=== PATIENT | female | born 1980 | race Hispanic/Latino ===

== ENCOUNTER 2020-06-23 11:21 | Emergency (ER) | payer OTHER, MEDICAID, SELFPAY ==
[2020-06-23 11:34] VITALS: BP 96/58; PULSE 72; RESP 14; TEMP 36.6; O2SAT 100; BMI 19.8
[2020-06-23 12:12] LABS: Add Manual Diff / Slide Review NO; Basophils Absolute Auto 100 /uL (0-100); Basophils Percent Auto 0.8 % (0-2); Eosinophils Absolute Auto 300 /uL (0-450); Eosinophils Percent Auto 3.7 % (2-4); Hematocrit 38.5 % (36-46); Hemoglobin 12.9 g/dL (12.0-16.0); Lymphocytes Absolute Auto 1900 /uL (1100-4500); Mean Corpuscular HGB Conc 33.4 % (30-36); Mean Corpuscular Hemoglobin 28.5 PG (26-34); Mean Corpuscular Volume 85.4 fL (80-100); Monocytes Absolute Auto 300 /uL (0-900); Monocytes Percent Auto 4.6 % (3-14); Neutrophils Absolute Auto 4500 /uL (1500-7000); Neutrophils Percent Auto 63.9 % (50-75); Platelet Count 218 X10^3/uL (150-400); Red Blood Cell Count 4.51 X10^6/uL (4.0-5.2); Red Cell Distribution Width 13.3 % (11.6-14.8); White Blood Cell Count 7.1 X10^3/uL (4.5-11.0)
--- NOTE | 2020-06-23 14:18 | DI.US.S_ITS ---
PROCEDURE: US OB <= 14 WEEKS FETUS INDICATIONS: 7 weeks preg, bleeding OUTSIDE/PRIOR DATING DATA: Last menstrual period (LMP): May 02, 2020. LMP-based estimated date of delivery (IVORY): February 06, 2021 . First dating scan (date and location): June 23, 2020 . Estimated date of delivery (IVORY) from first dating scan: February 09, 2021 . TECHNIQUE: Real-time scanning was performed of the fetus and maternal pelvic organs, with image documentation. Endovaginal scanning was also performed to better visualize the fetus and maternal ovaries. COMPARISON: None. FINDINGS: Embryo: There is a single living intrauterine gestation with an estimated sonographic gestational age of approximately 7 weeks and 0 days based off crown-rump length measurement of 1.0 cm. cardiac activity measured 131 beats per minute. Normal yolk sac is seen. No perigestational hemorrhage. Measurement variability in dating: +/- 4 weeks by LMP, +/- 7 days by mean sac diameter (use before 6 weeks gestation if crown-rump length not able to be measured), +/- 5 days by crown-rump length (up to 8 weeks 6 days gestation), +/- 7 days by crown-rump length (up to 13 weeks 6 days gestation). Maternal organs: Ovaries appear normal bilaterally. Maternal cervix appears visibly normal. Limited images through the kidneys demonstrate no hydronephrosis. IMPRESSION: Single living intrauterine gestation with an estimated sonographic gestational age of approximately 7 weeks and 0 days versus approximately 7 weeks and 3 days by last menstrual period. Dating is concordant. Estimated date of delivery is February 09, 2021. Clinical and imaging follow-up recommended. Dictated by: Chaparro Pelletier M.D. on 06/23/2020 at 14:25 Approved by: Chaparro Pelletier M.D. on 06/23/2020 at 14:29
[2020-06-23 14:26] LABS: Alanine Aminotransferase 35 IU/L (<35); Albumin 4.7 g/dL (3.5-5.0); Albumin Globulin Ratio 1.5 (1.0-2.8); Alkaline Phosphatase 67 U/L (38-126); Aspartate Aminotransferase 33 IU/L (14-36); Bilirubin Total 0.5 mg/dL (0.2-1.3); Blood Urea Nitrogen 18 mg/dL (7-17); Calcium 9.5 mg/dL (8.4-10.2); Carbon Dioxide 27 mmol/L (22-32); Chloride 103 mmol/L (98-107); Estimated Glomerular Filt Rate > 60.0 mL/min (>60); Globulin 3.2 g/dL (1.7-4.1); Glucose 92 mg/dL (70-100); HEMOLYSIS < 15 (0-50); Potassium 4.3 mmol/L (3.4-5.1); Sodium 137 mmol/L (137-145); Total Protein 7.9 g/dL (6.3-8.2)
[2020-06-23 14:42] LABS: HCG Quantitative /Beta subunit 1912.4 mIU/mL
[2020-06-23 15:53] VITALS: BP 102/49; PULSE 75; RESP 16; TEMP 37.1; O2SAT 98
--- NOTE | 2020-06-23 16:10 | ED_ITS ---
HPI - <DEJAN Morrow - Last Filed: 06/23/20 17:34> General Chief complaint: Vaginal Bleeding Stated complaint: 7 weeks preg,some bleeding Time Seen by Provider: 06/23/20 12:49 Source: patient Mode of arrival: Ambulatory Limitations: no limitations History of Present Illness HPI Narrative: The patient is a 40-year-old female nonsmoker who presents with a chief complaint of being 7 weeks with some vaginal bleeding. She states it started on Saturday, and since then has come and gone. She has not established care with an OBGYN locally and does not have a local primary care provider. She denies any new dysuria urgency or frequency. Denies any new or abnormal vaginal discharge. Denies any flank or back pain. States she feels as though she had some slight cramping. Related Data Allergies Allergy/AdvReac Type Severity Reaction Status Date / Time No Known Drug Allergies Allergy Verified 06/23/20 11:34 Review of Systems <DEJAN Morrow - Last Filed: 06/23/20 17:34> Review of Systems Narrative: GENERAL: Denies chills, fatigue, malaise, fever, sweats. HEENT: Denies sinus pain, ear pain, sore throat, difficulty swallowing, dizziness. RESPIRATORY: Denies dyspnea, cough, wheezing, hemoptysis, sputum. CARDIOVASCULAR: Denies chest pain, palpitations, orthopnea, edema, GASTROINTESTINAL: See HPI : See HPI MUSCULOSKELETAL: denies weakness, joint pain, or bony pain SKIN: Denies rash, skin lesions, or other NEUROLOGIC: Denies weakness, headache, numbness, change in speech, confusion, seizures, incoordination. PSYCHIATRIC: No concerning psychosocial issues. 12 point review of systems is negative except for those stated above Exam <DEJAN Morrow - Last Filed: 06/23/20 17:34> Narrative Exam Narrative: GENERAL: This is a well-nourished, well-developed patient, in no no acute distress HEAD: Atraumatic. Normocephalic. No temporal or scalp tenderness. EYES: Pupils equal round and reactive. Extraocular motions intact. No scleral icterus. No injection or drainage. ENT: Nose without bleeding, purulent drainage or septal hematoma. Throat without erythema, tonsillar hypertrophy or exudate. Uvula midline. Airway patent. NECK: Trachea midline. No JVD or lymphadenopathy. Supple, nontender, no meningeal signs. CARDIOVASCULAR: Regular rate and rhythm RESPIRATORY: Clear to auscultation. Breath sounds equal bilaterally. No wheezes, rales, or rhonchi. No cough. No increased respiratory effort. No accessory muscle use. GASTROINTESTINAL: Abdomen soft, non-tender, nondistended. No hepato- splenomegaly, or palpable masses. No guarding. Active bowel sounds all 4 quadrants. EXTREMITIES: No clubbing, cyanosis, or edema. No joint tenderness, effusion, or edema noted. BACK: Nontender without deformity or crepitance. No flank tenderness. NEURO: AOx3. SKIN: No rash or erythema on visible skin Initial Vital Signs Initial Vital Signs: Vital Signs Temperature 97.8 F 06/23/20 11:34 Pulse Rate 72 06/23/20 11:34 Respiratory Rate 14 06/23/20 11:34 Blood Pressure 96/58 L 06/23/20 11:34 Pulse Oximetry 100 06/23/20 11:34 <Ace Pineda MD - Last Filed: 06/26/20 18:56> Initial Vital Signs Initial Vital Signs: Vital Signs Temperature 97.8 F 06/23/20 11:34 Pulse Rate 72 06/23/20 11:34 Respiratory Rate 14 06/23/20 11:34 Blood Pressure 96/58 L 06/23/20 11:34 Pulse Oximetry 100 06/23/20 11:34 Scores <TAHIRA Morrow - Last Filed: 06/23/20 17:34> GCS Tomer coma scale eye opening: Spontaneous Tomer coma scale verbal response: Orientated Grannis coma scale motor response: Obey commands Grannis coma scale total score: 15 Course <TAHIRA Morrow - Last Filed: 06/23/20 17:34> Orders Ordered: ED Orders 06/23/20 11:57 ABO RH Type Stat Complete Blood Count AUTO DIFF Stat Comprehensive Metabolic Panel Stat HCG Quantitative /Beta subunit Stat 06/23/20 14:18 US OB <= 14 weeks fetus Stat Vital Signs Vital signs: Vital Signs - 8 hr 06/23/20 11:34 06/23/20 15:53 Temperature 97.8 F 98.8 F Pulse Rate 72 75 Respiratory Rate 14 16 Blood Pressure 96/58 L 102/49 L Pulse Oximetry 100 98 <Ace Pineda MD - Last Filed: 06/26/20 18:56> Orders Ordered: ED Orders 06/23/20 11:57 ABO RH Type Stat Complete Blood Count AUTO DIFF Stat Comprehensive Metabolic Panel Stat HCG Quantitative /Beta subunit Stat 06/23/20 14:18 US OB <= 14 weeks fetus Stat Vital Signs Vital signs: Vital Signs - 8 hr 06/23/20 11:34 06/23/20 15:53 Temperature 97.8 F 98.8 F Pulse Rate 72 75 Respiratory Rate 14 16 Blood Pressure 96/58 L 102/49 L Pulse Oximetry 100 98 MDM - OB/Uterine Contractions <TAHIRA Morrow - Last Filed: 06/23/20 17:34> Lab Data Attestation: I reviewed the patient's lab results. Result diagrams: 06/23/20 11:57 06/23/20 11:57 Labs: Lab Results 06/23/20 06/23/20 06/23/20 Range/Units 11:57 11:57 11:57 WBC 7.1 (4.5-11.0) X10^3/uL RBC 4.51 (4.0-5.2) X10^6/uL Hgb 12.9 (12.0-16.0) g/dL Hct 38.5 (36-46) % MCV 85.4 (80-100) fL MCH 28.5 (26-34) PG MCHC 33.4 (30-36) % RDW 13.3 (11.6-14.8) % Plt Count 218 (150-400) X10^3/uL Neut % (Auto) 63.9 (50-75) % Lymph % (Auto) 27.0 (25-40) % [place] % (Auto) 4.6 (3-14) % Eos % (Auto) 3.7 (2-4) % Baso % (Auto) 0.8 (0-2) % Neut # (Auto) 4500 (5886-5301) /uL Lymph # (Auto) 1900 (9458-8724) /uL [place] # (Auto) 300 (0-900) /uL Eos # (Auto) 300 (0-450) /uL Baso # (Auto) 100 (0-100) /uL Sodium 137 (137-145) mmol/L Potassium 4.3 (3.4-5.1) mmol/L Chloride 103 (98-107) mmol/L Carbon Dioxide 27 (22-32) mmol/L BUN 18 H (7-17) mg/dL Creatinine 0.58 (0.52-1.04) mg/dL Estimated GFR > 60.0 (>60) mL/min BUN/Creatinine Ratio 31.0 H (6-22) Glucose 92 (70-100) mg/dL Calcium 9.5 (8.4-10.2) mg/dL Total Bilirubin 0.5 (0.2-1.3) mg/dL AST 33 (14-36) IU/L ALT 35 H (<35) IU/L Alkaline Phosphatase 67 (38-126) U/L Total Protein 7.9 (6.3-8.2) g/dL Albumin 4.7 (3.5-5.0) g/dL Globulin 3.2 (1.7-4.1) g/dL Albumin/Globulin Ratio 1.5 (1.0-2.8) HCG, Quant 1912.4 mIU/mL Blood Type B Positive Point of Care Testing Test Results Positive Urine Dip Bedside Urine Glucose Negative Bedside Urine Bilirubin + 1 Bedside Urine Ketone - Negative Urine Specific [place] 1.015 Bedside Urine Occult Blood - Negative Bedside Urine pH 8.0 Bedside Urine Protein +/- 15 Bedside Urine Urobilinogen - Negative Bedside Urine Nitrite - Negative Bedside Urine Leukocytes - Negative Esterase Imaging Data US - OB: Radiologist's Impression: [address] [place] [id number] Ultrasound Report Signed Patient: Carolyn Lee PMR#: [id number] : 1980Acct:[id number] Age/Sex: 40 / FDate of Service: 06/23/20 Loc: ED Accession Number: [id number] Procedure: US OB <= 14 weeks fetus Ordering Provider: Kira Palma PROCEDURE: US OB <= 14 WEEKS FETUS INDICATIONS: 7 weeks preg, bleeding OUTSIDE/PRIOR DATING DATA: Last menstrual period (LMP): May 02, 2020. LMP-based estimated date of delivery (IVORY): February 06, 2021 . First dating scan (date and location): June 23, 2020 . Estimated date of delivery (IVORY) from first dating scan: February 09, 2021 . TECHNIQUE: Real-time scanning was performed of the fetus and maternal pelvic organs, with image documentation. Endovaginal scanning was also performed to better visualize the fetus and maternal ovaries. COMPARISON: None. FINDINGS: Embryo: There is a single living intrauterine gestation with an estimated s onographic gestational age of approximately 7 weeks and 0 days based off crown-rump length measurement of 1.0 cm. cardiac activity measured 131 beats per minute. Normal yolk sac is seen. No perigestational hemorrhage. Measurement variability in dating: +/- 4 weeks by LMP, +/- 7 days by mean sac diameter (use before 6 weeks gestation if crown-rump length not able to be measured), +/- 5 days by crown-rump length (up to 8 weeks 6 days gestation), +/- 7 days by crown-rump length (up to 13 weeks 6 days gestation). Maternal organs: Ovaries appear normal bilaterally. Maternal cervix appears visibly normal. Limited images through the kidneys demonstrate no hydronephrosis. IMPRESSION: Single living intrauterine gestation with an estimated sonographic gestational age of approximately 7 weeks and 0 days versus approximately 7 weeks and 3 days by last menstrual period. Dating is concordant. Estimated date of delivery is February 09, 2021. Clinical and imaging follow-up recommended. Dictated by: Chaparro Pelletier M.D. on 06/23/2020 at 14:25 Approved by: Chaparro Pelletier M.D. on 06/23/2020 at 14:29 MDM Narrative Medical decision making narrative: The patient is a 40-year-old female presents with a chief complaint of vaginal bleeding during her 7 week . Does not appear acutely ill, has normal vital signs. Lab work grossly within normal limits, though beta hCG noted to be slightly low if for 7 week . Ultrasound is no acute findings. Urine has no signs of infection. Given that the patient does not have a local primary care provider or OBGYN, I spoke with Dr. wilson who is willing to follow up with the patient the next few days. Discussed at length the importance of follow-up with Dr. wilson, the possibility of an early miscarriage and that it is impossible to determine at this point what would happen. I discussed at length return precautions the ER including acute concerns, severe abdominal pain, severe abdominal bleeding etcetera. Patient has no questions or concerns upon discharge and states understanding return precautions as well as follow-up care. <Ace Pineda MD - Last Filed: 06/26/20 18:56> Lab Data Labs: Lab Results 06/23/20 06/23/20 06/23/20 Range/Units 11:57 11:57 11:57 WBC 7.1 (4.5-11.0) X10^3/uL RBC 4.51 (4.0-5.2) X10^6/uL Hgb 12.9 (12.0-16.0) g/dL Hct 38.5 (36-46) % MCV 85.4 (80-100) fL MCH 28.5 (26-34) PG MCHC 33.4 (30-36) % RDW 13.3 (11.6-14.8) % Plt Count 218 (150-400) X10^3/uL Neut % (Auto) 63.9 (50-75) % Lymph % (Auto) 27.0 (25-40) % [place] % (Auto) 4.6 (3-14) % Eos % (Auto) 3.7 (2-4) % Baso % (Auto) 0.8 (0-2) % Neut # (Auto) 4500 (9734-8688) /uL Lymph # (Auto) 1900 (7056-6032) /uL [place] # (Auto) 300 (0-900) /uL Eos # (Auto) 300 (0-450) /uL Baso # (Auto) 100 (0-100) /uL Sodium 137 (137-145) mmol/L Potassium 4.3 (3.4-5.1) mmol/L Chloride 103 (98-107) mmol/L Carbon Dioxide 27 (22-32) mmol/L BUN 18 H (7-17) mg/dL Creatinine 0.58 (0.52-1.04) mg/dL Estimated GFR > 60.0 (>60) mL/min BUN/Creatinine Ratio 31.0 H (6-22) Glucose 92 (70-100) mg/dL Calcium 9.5 (8.4-10.2) mg/dL Total Bilirubin 0.5 (0.2-1.3) mg/dL AST 33 (14-36) IU/L ALT 35 H (<35) IU/L Alkaline Phosphatase 67 (38-126) U/L Total Protein 7.9 (6.3-8.2) g/dL Albumin 4.7 (3.5-5.0) g/dL Globulin 3.2 (1.7-4.1) g/dL Albumin/Globulin Ratio 1.5 (1.0-2.8) HCG, Quant 1912.4 mIU/mL Blood Type B Positive Point of Care Testing Test Results Positive Urine Dip Bedside Urine Glucose Negative Bedside Urine Bilirubin + 1 Bedside Urine Ketone - Negative Urine Specific [place] 1.015 Bedside Urine Occult Blood - Negative Bedside Urine pH 8.0 Bedside Urine Protein +/- 15 Bedside Urine Urobilinogen - Negative Bedside Urine Nitrite - Negative Bedside Urine Leukocytes - Negative Esterase Discharge Plan Departure Patient Disposition: Home Clinical Impression: Vaginal bleeding during , Miscarriage, threatened, early Discharge Date/Time: 06/23/20 17:00 Instructions: Threatened Miscarriage, DI for Vaginal Bleeding During Activity Restrictions/Additional Instructions: Thank you for trusting us with your care today. As discussed, your ultrasound looks good at this point. Please follow-up with Dr. wilson, our OBGYN. I spoke with her regarding you, in her office she will be reaching out to you to help schedule follow-up for next week. As discussed it is impossible to tell whether or not this is a sign of an early miscarriage. Please monitor for increased vaginal bleeding pain. Please come back to the emergency department for any acute concerns. I have also given you contact information to the [facility] manager human resources, who can help you local primary care providers who accept her insurance. Please rest and push fluids Please come back to the emergency department for any acute concerns. Referrals: [facility] [Outside] Sarah Wilson MD [Physician] - Narciso Marte [Primary Care Provider] - <Ace Pineda MD - Last Filed: 06/26/20 18:56> Cosign ED Attending Cosignature Attestation: I was immediately available in the department for consultation. This documentation has been reviewed and I agree with assessment and plan. Supervised by Ace Pineda MD
== END 2020-06-23 17:00 | disposition home or self-care (01) ==
PROVIDERS: Emergency Medicine; Emergency Provider Nurse Practitioner Family; PCP Family Medicine
DX: O20.0 Threatened abortion (principal); Z3A.01 Less than 8 weeks gestation of pregnancy
CPT/HCPCS: 36415; 76801; 76817; 80053; 81003; 81025; 84702; 85025; 86900; 86901; 99283; 99284

== ENCOUNTER → 2020-10-27 08:20 | Outpatient (CLI) | payer OTHER, MEDICAID, SELFPAY ==
--- NOTE | 2020-10-27 | DI.US.S_ITS ---
PROCEDURE: US OB <= 14 WEEKS FETUS INDICATIONS: SIZE AND DATES OUTSIDE/PRIOR DATING DATA: Last menstrual period (LMP): September 16, 2020. LMP-based estimated date of delivery (IVORY): June 23, 2021. First dating scan (date and location): October 27, 2020. Estimated date of delivery (IVORY) from first dating scan: June 30, 2021. TECHNIQUE: Real-time scanning was performed of the fetus and maternal pelvic organs, with image documentation. Endovaginal scanning was also performed to better visualize the fetus and maternal ovaries. COMPARISON: [facility], , OB <= 14 WEEKS FETUS, 06/23/2020, 14:51. FINDINGS: Embryo: There is a single intrauterine gestation. A yolk sac is visualized. No pole or visible cardiac activity. This measures approximately 6 weeks and 2 days based off mean gestational sac diameter. No perigestational hemorrhage seen. Measurement variability in dating: +/- 4 weeks by LMP, +/- 7 days by mean sac diameter (use before 6 weeks gestation if crown-rump length not able to be measured), +/- 5 days by crown-rump length (up to 8 weeks 6 days gestation), +/- 7 days by crown-rump length (up to 13 weeks 6 days gestation). Maternal organs: Ovaries appear unremarkable without evidence for ovarian or adnexal mass lesions. No pelvic free fluid . IMPRESSION: 1. Single intrauterine gestation with estimated sonographic gestational age of approximately 6 weeks and 2 days based off mean gestational sac diameter versus approximately 5 weeks and 6 days based off last menstrual period. A yolk sac is visualized but no pole or cardiac activity. Recommend continued clinical surveillance with serial quantitative HCG measurements to document expected rate of rise as well as follow-up ultrasound as indicated. 2. Normal sonographic appearance of the bilateral ovaries/adnexa. Dictated by: Chaparro Pelletier M.D. on 10/27/2020 at 12:12 Approved by: Chaparro Pelletier M.D. on 10/27/2020 at 12:18
== END ==
PROVIDERS: PCP Family Medicine; Referring Provider Nurse Practitioner Obstetrics & Gynecology; Visit Provider Nurse Practitioner Obstetrics & Gynecology
DX: Z36.87 Encounter for antenatal screening for uncertain dates (principal); Z3A.01 Less than 8 weeks gestation of pregnancy
CPT/HCPCS: 76801; 76817